=== PATIENT | female | born 1975 | race Caucasian/White ===

== ENCOUNTER 2021-12-22 09:03 | Emergency (ER) | payer BC, SELFPAY ==
[2021-12-22] MEDS ORDERED: Ketorolac Tromethamine 60 MG/2 ML VIAL ONE (09:27)
== END 2021-12-22 10:15 | disposition home or self-care (01) ==
LOC: BURERS 09:03
DX: U07.1 COVID-19 (principal); F17.210 Nicotine dependence, cigarettes, uncomplicated
CPT/HCPCS: 87804; 96372; 99283; J1885; U0003; U0005